=== PATIENT | male | born 1990 | race African-American/Black ===

== ENCOUNTER 2022-06-15 21:11 | Emergency (ER) | payer SELFPAY | END 2022-06-15 23:04 | disposition home or self-care (01) | LOC: ERS 21:11 | DX: B35.3 Tinea pedis (principal); F17.210 Nicotine dependence, cigarettes, uncomplicated | CPT/HCPCS: 99282 ==

== ENCOUNTER 2022-08-11 13:45 | Emergency (ER) | payer SELFPAY | END 2022-08-11 15:45 | disposition home or self-care (01) | LOC: ERS 13:45 | DX: J01.00 Acute maxillary sinusitis, unspecified (principal); F17.210 Nicotine dependence, cigarettes, uncomplicated | CPT/HCPCS: 99282 ==